=== PATIENT | male | born 2000 | race Caucasian/White ===

== ENCOUNTER 2021-02-05 11:17 | Outpatient (CLI) | payer BC | END 2021-02-05 11:18 | disposition home or self-care (01) | LOC: SCSRAD 11:17 | PROVIDERS: ATTEND Family Medicine | DX: M25.532 Pain in left wrist (principal); S62.002K Unspecified fracture of navicular [scaphoid] bone of left wrist, subsequent encounter for fracture with nonunion; M25.832 Other specified joint disorders, left wrist ==